=== PATIENT | female | born 1985 | race Caucasian/White ===

== ENCOUNTER 2017-02-27 16:55 | Emergency (ER) | payer SELFPAY ==
[~2017-02-27] VITALS: Ht 160 cm; Wt 70.5 kg
[2017-02-27 17:03] VITALS: Ht 160 cm; Wt 70.5 kg
[2017-02-27] MEDS ORDERED: NO DAILY MEDS (17:20)
--- NOTE | 2017-02-27 17:27 | ERPDOC ---
Departure Disposition Decision Date: February 27, 2017 Disposition Decision Time: 18:06 Disposition: 01 DISCHARGED HOME, SELF-CARE Impression Impression Impression: Primary Impression: Finger fracture, right Encounter type: initial encounter Fracture type: closed Qualified Codes: S62.609A - Fracture of unspecified phalanx of unspecified finger, initial encounter for closed fracture Severity: Mild Condition: Improved Seen By: Mid-level only Patient Instructions: Finger Fracture (ED) Problems/Meds/Labs Reviewed?: Yes Medications reviewed and manag: Yes Additional Instructions: Your x-rays show a possible proximal 3rd finger fracture. Wear splint as directed. Ice and elevate. You may take 600-800mg of ibuprofen every 8 hours for pain. Follow with your PCP for follow up in 10 days for re-evaluation, sooner if worsting symptoms. Follow up care ordered?: Yes Mental Status: Alert, Oriented HPI General Chief Complaint: Upper Extremity Injury Stated Complaint: POSS BROKEN HAND ( RIGHT) Time Seen by Provider: 17:27 Source: patient HPI Hand/Forearm Initial Comments 31-year-old female presents to ER with right hand pain. Patient states that she punched a sink this afternoon with her right hand at 1500. Having pain over 3rd 4th and 5th metacarpals and fingers. Has not taken anything for pain. Occurred At: home Pain Scale: Now: 8/10 Location: left: 3rd finger, 4th finger, 5th finger, hand Method of Injury: direct blow Associated Symptoms: bruising, pain with flexion, swelling, DENIES: pain with extension Allergies: Coded Allergies: codeine (Verified Allergy, Unknown, THROAT SWELLING AND COUGHING, 02/27/17) Past History Past Medical History Metabolic: DENIES: diabetes Cardiac: DENIES: angina Respiratory: DENIES: asthma GI: DENIES: ulcers Female: DENIES: renal insufficiency Neurological: DENIES: seizures Musculoskeletal: back pain Psychological: DENIES: depression Surgical History General: back Family History Family PMH: FOUND: other (noncontributory) Social History Residence: home Review of Systems Constitutional Constitutional: DENIES: chills, fever Eyes General: DENIES: erythema, exudate Lids/Accessories: DENIES: erythema, swelling ENMT Ears: DENIES: pain Hearing: DENIES: hearing loss Sinuses: DENIES: congestion, rhinorrhea Mouth/Throat: DENIES: sore throat Cardiovascular Cardiac: DENIES: chest pain, murmur Rhythm/Rate: DENIES: palpitations Pulmonary Respiratory: DENIES: cough, dyspnea GI Upper Abdomen: DENIES: nausea, pain, vomiting Lower Abdomen: DENIES: diarrhea, pain General: DENIES: dysuria, pain Musculoskeletal General: pain, see HPI, tenderness Integumentary Skin: DENIES: color change, itching, rash Neurological General: DENIES: ataxia, change in strength, numbness, paralysis/paresis, weakness Psychiatric Psychiatric: DENIES: anxiety, depression, nervousness Exam General General Nourishment: well nourished, well developed, adult General Body Habitus: disheveled Vital Signs: Temperature: 98.6, Source: Oral, Heart Rate: 112, Respiratory Rate : 18, BP: 113/70, Pulse Oximetry: 96 Height (Feet): 5 Height (Inches): 3.00 Fastrak Hand/Forearm Hand/Forearm : Upper Extremity: Right Wrist: ROM intact, NOT FOUND: deformity, ecchymosis, erythema, snuff box tenderness, swelling, tender, thenar eminence tender Hand: ecchymosis (over 5th admitted carpal), swelling (swelling over 3rd, 4th and 5th metacarpal), tender (tender to palpation over 3rd, 4th and 5th metacarpal), NOT FOUND: deformity, erythema Fingers: impaired flexion (decreased due to pain 3rd, 4th and 5th), soft touch intact, tender (3rd, 4th, 5th), NOT FOUND: cap refill <2sec ea digit, deformity, ecchymosis, erythema, impaired abduction, impaired adduction, impaired extension, impaired grasp, laceration, rotational deformity, swelling Radial Pulse: 2+ Eyes (brief) Eyes Brief: found: EOMI ENMT (brief) ENMT Brief: NOT FOUND: nasal exudate, nasal swelling Neurologic RN Documented GCS Eye Opening: Verbal: Motor: Total: Differential Diagnoses Considering: Dislocation, Fracture, Sprain, Strain Progress Results/Orders Orders Procedure Category Date Status Time Hand Right 3 View RAD 02/27/17 Resulted Ibuprofen (Motrin) PHA 02/27/17 Complete 18:00 Premade Splint EDM 02/27/17 Transmitted 17:53 Tramadol (Ultram) PHA 02/27/17 Complete 18:30 Medications Current ED Medications Ibuprofen (Motrin) 600 mg O ONCE PO ; Start 02/27/17 at 18:00; Stop 02/27/17 at 18:20; Status DC Tramadol HCl (Ultram) 50 mg O ONCE PO Last administered on 02/27/17t 18:27; Start 02/27/17 at 18:30; Stop 02/27/17 at 18:31; Status DC Progress Progress I discussed x-ray findings with patient and that I am concerned for proximal phalanx fracture. I discussed treatment plan (splint, pain control), follow up with PCP for re-evaluation and return precautions which patient verbalized understanding. Xray Xray : Xray: Hand R (concern for proximal fracture of phalanx of long finger (Dr. Shepard)) EMILIANO KRAMER [employer] February 27, 2017 17:27
[2017-02-27] MEDS ORDERED: IBUPROFEN 200 MG TABLET PO ONE (18:00)
--- NOTE | 2017-02-27 18:20 | NUR ---
SPLINT METAL SPLINT APPLIED TO RIGHT 3RD FINGER
--- NOTE | 2017-02-27 18:25 | NUR ---
MEDICATION ULTRAM 50MG PO ADMINISTERED PER PT REQUEST. PT REFUSED IBUPROFEN AND REQUESTED ULTRAM
[2017-02-27 18:27] VITALS: BP 120/71; PULSE 98; RESP 16; TEMP 98.6; O2SAT 97
--- NOTE | 2017-02-27 18:27 | NUR ---
DISMISSAL DISMISSAL INSTRUCTINS TO PT WITHOUT FURTHER QUESTIONS. PT LEFT DEPARTMENT AMBUALTORY WITH FAMILY
[2017-02-27] MEDS ORDERED: TRAMADOL 50 MG TABLET PO ONE (18:30)
--- NOTE | 2017-02-28 08:38 | DI ---
Indication: ITS.REASON: pain over 3rd, 4th and 5th metacarpals and fingers PROCEDURE: HAND RIGHT 3 VIEW: Encounter: Initial Comparison: None Findings: Curvilinear lucency projecting over the long finger proximal phalanx on the oblique view only without cortical step-off or complete breakthrough. This is not confirmed on the other two views. No additional area concerning for acute fracture. No dislocation. Impression: Curvilinear lucency seen projecting over the long finger proximal phalanx on one view could represent artifact, nutrient vessel or nondisplaced fracture. .
== END 2017-02-27 18:27 | disposition home or self-care (01) ==
LOC: ED 16:55
DX: S62.612A Displaced fracture of proximal phalanx of right middle finger, initial encounter for closed fracture (principal); X83.8XXA Intentional self-harm by other specified means, initial encounter; Y93.89 Activity, other specified; Y92.009 Unspecified place in unspecified non-institutional (private) residence as the place of occurrence of the external cause; Y99.8 Other external cause status